=== PATIENT | female | born 2000 | race African-American/Black ===

== ENCOUNTER 2022-06-30 18:54 | Emergency (ER) | payer MEDICAID, OTHER ==
[~2022-06-30] VITALS: Ht 170.2 cm; Wt 55.0 kg
[2022-06-30 19:08] VITALS: BP 111/66
[2022-06-30] MEDS ORDERED: ACETAMINOPHEN 325MG TABLET PO ONE (21:45)
[2022-06-30] MEDS ORDERED: LIDO1ADH23 TP (23:26)
[2022-06-30] MEDS ORDERED: IBUP-2028 MT (23:26)
[2022-06-30] MEDS ORDERED: TOPUD PO (23:26)
[2022-06-30] MEDS ORDERED: METH-653 MT (23:26)
== END 2022-07-01 00:09 | disposition home or self-care (01) ==
LOC: ER 19:21
DX: R51.9 Headache, unspecified (principal); R07.89 Other chest pain; V43.52XA Car driver injured in collision with other type car in traffic accident, initial encounter; Y93.89 Activity, other specified; Y92.488 Other paved roadways as the place of occurrence of the external cause
CPT/HCPCS: 70486; 71046; 99284